=== PATIENT | female | born 1935 | race Two or more races ===

== ENCOUNTER → 2023-10-31 16:07 | Outpatient (REF) | payer MEDICARE, SELFPAY ==
[2023-10-31 16:52] LABS: % Basophils 1.4 % (0-2); % Eosinophils 1.5 % (0-6); % Immature Granulocytes 0.2 % (0-0.5); % Monocytes 14.6 % (1.7-9.3); % Neutrophils 62.3 % (42.2-75.2); Absolute Basophils 0.1 10^3/uL (0-0.2); Absolute Eosinophils 0.1 10^3/uL (0-0.7); Absolute Lymphocytes 1.6 10^3/uL (1.2-3.4); Absolute Monocytes 1.2 10^3/uL (0.1-0.6); Absolute Neutrophils 5.1 10^3/uL (1.4-6.5); Hematocrit 36.1 % (37.0-47.0); Hemoglobin 11.9 g/dL (12.0-16.0); Mean Corpuscular Hgb 28.5 pg (27.0-31.0); Mean Corpuscular Volume 86.6 fL (81.0-99.0); Mean Platelet Volume 9.6 fL (7.4-10.4); Nucleated Red Blood Cells % 0 %; Platelet Count 347 10^3/uL (130-400); Red Blood Cell Count 4.17 10^6/uL (4.20-5.40); Red Cell Dist. Width 15.8 % (11.5-14.5); White Blood Cell Count 8.1 10^3/uL (4.8-10.8)
[2023-10-31 17:20] LABS: ALT (SGPT) 22 U/L (0-35); AST (SGOT) 26 U/L (14-36); Albumin 4.2 g/dl (3.5-5.0); Alkaline Phosphatase 88 U/L (38-126); Blood Urea Nitrogen 23 mg/dl (7-17); Calcium 9.9 mg/dl (8.4-10.2); Carbon Dioxide 23 mmol/L (22-30); Chloride 106 mmol/L (98-107); Glucose 82 mg/dl (70-99); Potassium 3.9 mmol/L (3.5-5.1); Sodium 139 mmol/L (135-145); Total Bilirubin 0.6 mg/dl (0.2-1.3); Total Protein 6.4 g/dl (6.3-8.2); eGFR > 60.00
[2023-10-31 17:34] LABS: Free T4 1.64 ng/dl (0.78-2.19); Vitamin D, 25-OH*** 77.5 ng/mL (30-80)
== END ==
LOC: REG 16:07
PROVIDERS: ATTENDING PHYSICIAN Nurse Practitioner; FAMILY PHYSICIAN Family Medicine
DX: R06.02 Shortness of breath (principal); R53.83 Other fatigue; D64.9 Anemia, unspecified; Z79.899 Other long term (current) drug therapy
CPT/HCPCS: 36415; 71046; 80053; 82306; 84439; 84443; 85025

== ENCOUNTER → 2023-12-26 07:46 | Outpatient (REF) | payer MEDICARE, SELFPAY | LOC: RAD 07:46 | PROVIDERS: FAMILY PHYSICIAN Family Medicine | DX: R19.4 Change in bowel habit (principal) | CPT/HCPCS: 74177; Q9967 ==

== ENCOUNTER → 2024-01-27 16:58 | Outpatient (REF) | payer MEDICARE, SELFPAY | LOC: MRI 3T 16:58 | PROVIDERS: ATTENDING PHYSICIAN Family Medicine | DX: N28.9 Disorder of kidney and ureter, unspecified (principal) | CPT/HCPCS: 74183; A9575 ==

== ENCOUNTER → 2024-09-24 14:11 | Outpatient (REF) | payer MEDICARE, SELFPAY | LOC: RAD 14:11 | PROVIDERS: ATTENDING PHYSICIAN Family Medicine; FAMILY PHYSICIAN Family Medicine | DX: R05.1 Acute cough (principal) | CPT/HCPCS: 71046 ==